=== PATIENT | male | born 1995 | race Caucasian/White ===

== ENCOUNTER 2019-11-26 00:58 | Emergency (ER) | payer OTHER ==
[~2019-11-26] VITALS: Ht 177.8 cm; Wt 70.0 kg
[2019-11-26 01:06] VITALS: BP 122/63
[2019-11-26 01:34] LABS: STREP SCREEN NEGATIVE
[2019-11-26 02:34] LABS: MONOSCREEN NEGATIVE
[2019-11-26] MEDS ORDERED: CLEOCIN HCL300 MG PO (02:54)
[2019-11-26 03:01] VITALS: PULSE 70; TEMP 98.1
== END 2019-11-26 03:17 | disposition home or self-care (01) ==
LOC: COL.ER 00:58
PROVIDERS: Emergency Medicine
DX: J03.90 Acute tonsillitis, unspecified (principal)